=== PATIENT | female | born 2000 | race African-American/Black ===

== ENCOUNTER 2022-04-12 08:46 | Emergency (ER) | payer OTHER ==
[~2022-04-12] VITALS: Ht 157.5 cm; Wt 56.7 kg
[2022-04-12 08:50] VITALS: BP 107/68
--- NOTE | 2022-04-12 08:57 | NUR ---
PT AMBULATED TO BED 6
--- NOTE | 2022-04-12 09:11 | NUR ---
4OYO FEMALE PT C/O "LUMP" IN L CHEST [id number]. PRESSURED PAIN ON TOUCH OR COUGH W/ INITIAL PAIN AFTER HAVING OBJECT FALL ON CHEST . DRY COUGH PRESENT. CHEST W/O VISIBLE INJURY. DENIES TAKING MEDICATION, N/V/D, FEVER OR CHILLS. PT AAOX4, HOB POSITIONED PER COMFORT. HX:DENIES NKA
--- NOTE | 2022-04-12 09:30 | NUR ---
MD DIAZ AT BEDSIDE FOR EVALUATION
[2022-04-12] MEDS ORDERED: IBUPROFEN 400 MG TAB PO ONE (09:40)
--- NOTE | 2022-04-12 09:50 | NUR ---
PT BROUGHT BACK FROM [facility] VIA WHEELCHAIR
--- NOTE | 2022-04-12 10:18 | NUR ---
Patient discharged with v/s stable. Written and verbal after care instructions FOR [employer] given and explained. Patient verbalized understanding. Ambulatory with steady gait. All questions addressed prior to discharge. Advised to follow up with PMD.
--- NOTE | 2022-04-12 10:19 | NUR ---
The patient's care was reviewed and supervised by Clemencia Haile RN.
== END 2022-04-12 10:18 | disposition home or self-care (01) ==
LOC: MED 08:46
DX: R07.89 Other chest pain (principal); R05.9 Cough, unspecified
CPT/HCPCS: 71046; 93005; 99283